=== PATIENT | male | born 1995 | race Caucasian/White ===

== ENCOUNTER 2023-11-19 21:57 | Emergency (ER) | payer OTHER ==
[2023-11-19] MEDS ORDERED: chlordiazePOXIDE 25 MG CAP ONE (22:40)
[2023-11-19] MEDS ORDERED: lisinopriL 10 MG TAB ONE (22:41)
[2023-11-20] MEDS ORDERED: LORazepam 1 MG TAB ONE (00:05)
== END 2023-11-20 | disposition home or self-care (01) ==
LOC: EC 21:57
CPT/HCPCS: 99284

== ENCOUNTER 2024-02-02 12:55 | Observation (INO) | payer OTHER ==
[2024-02-02 13:12] VITALS: TEMP 97.5
[2024-02-02] MEDS: ONDANSETRON 4 MG/2 ML VIAL IVP STA (13:31)
[2024-02-02] MEDS: SODIUM CHLORIDE 0.9% 2,000 ML IV ONE (13:31)
[2024-02-02] MEDS: LORazepam 2 MG/ML INJ IV STA (13:32)
[2024-02-02 13:34] LABS: Basophils % (A) 0 %; Eosinophils # (A) 0.1 k/uL (0-0.7); Eosinophils % (A) 1 %; HCT 52.8 % (39.0-53.0); HGB 17.4 gm/dL (13.0-17.5); Lymphocytes # (A) 0.7 k/uL (1.0-4.8); Lymphocytes % (A) 7 %; MCH 33.3 pg (25.0-35.0); MCV 101.1 fL (80.0-100.0); Mean Platelet Volume 8.6; Monocytes # (A) 0.7 k/uL (0-1.0); Monocytes % (A) 7 %; Neutrophils # (A) 8.1 k/uL (1.3-7.7); Neutrophils % (A) 84 %; Platelet Count 221 k/uL (150-450); RBC 5.23 m/uL (4.30-5.90); RDW 13.1 % (11.5-15.5); WBC 9.7 k/uL (3.8-10.6)
--- NOTE | 2024-02-02 13:45 | ED ---
General Adult HPI - General Chief complaint: Alcohol Stated complaint: ETOH, Withdrawals Time Seen by Provider: 02/02/24 13:00 Source: patient, RN notes reviewed, old records reviewed Mode of arrival: ambulatory Limitations: no limitations - History of Present Illness Initial comments: This is a 28-year-old male who presents to the emergency department stating he stopped drinking 11:00 last night and he is an alcoholic and he feels like he is going through withdrawal. Patient states he cannot stop vomiting and he has the shakes really bad. Patient states he tried rehab once before and it did not work. Patient states he is not suicidal homicidal but he is very ashamed for drinking so much. Patient would like to get sober at some time. Patient denies any chest pain difficulty breathing shortness of breath. Patient [place] any fever chills or cough. Patient has any abdominal pain. Patient denies any diarrhea. - Related Data Home Medications Medication Instructions Recorded Confirmed FLUoxetine HCL [PROzac] 20 mg PO DAILY 02/02/24 02/02/24 lisinopriL [Zestril] 10 mg PO DAILY 02/02/24 02/02/24 Allergies Allergy/AdvReac Type Severity Reaction Status Date / Time No Known Allergies Allergy Verified 02/02/24 14:58 Review of Systems ROS Statement: Those systems with pertinent positive or pertinent negative responses have been documented in the HPI. ROS Other: All systems not noted in ROS Statement are negative. Past Medical History Past Medical History: No Reported History History of Any Multi-Drug Resistant Organisms: None Reported Past Surgical History: No Surgical Hx Reported Past Psychological History: Depression Smoking Status: Never smoker Past Alcohol Use History: Abuse, Daily, Heavy Past Drug Use History: None Reported General Exam - General Exam Comments Initial Comments: GENERAL: Patient is well-developed and well-nourished. Patient is nontoxic and well- hydrated and is in moderate distress. ENT: Neck is soft and supple. No significant lymphadenopathy is noted. Oropharynx is clear. Moist mucous membranes. Neck has full range of motion without eliciting any pain. EYES: The sclera were anicteric and conjunctiva were pink and moist. Extraocular movements were intact and pupils were equal round and reactive to light. Eyelids were unremarkable. PULMONARY: Unlabored respirations. Good breath sounds bilaterally. No audible rales rhonchi or wheezing was noted. CARDIOVASCULAR: There is a regular rate and rhythm without any murmurs gallops or rubs. ABDOMEN: Soft and nontender with normal bowel sounds. SKIN: Skin is clear with no lesions or rashes and otherwise unremarkable. NEUROLOGIC: Patient is alert and oriented x3. Cranial nerves II through XII are grossly intact. Motor and sensory are also intact. Normal speech, volume and content. Symmetrical smile. MUSCULOSKELETAL: Normal extremities with adequate strength and full range of motion. No lower extremity swelling or edema. No calf tenderness. LYMPHATICS: No significant lymphadenopathy is noted PSYCHIATRIC: Normal psychiatric evaluation. Limitations: no limitations Course Vital Signs 02/02/24 02/02/24 13:00 15:43 Temperature 97.5 F L Pulse Rate 65 98 Respiratory 26 H 18 Rate Blood Pressure 181/97 166/92 O2 Sat by Pulse 98 97 Oximetry Medical Decision Making - Medical Decision Making EKG is interpreted by myself. EKG shows a sinus tachycardia at 126 bpm. MS interval is 152 QRS 109 QT interval 335 QTc of 410. Patient's EKG shows no ST segment elevation or depression. Was pt. sent in by a medical professional or institution (, PA, CARGO AND CONTAINER INSPECTOR, urgent care, hospital, or skilled nursing...) When possible be specific @ -No Did you speak to anyone other than the patient for history (EMS, parent, family, police, friend...)? What history was obtained from this source @ -No Did you review nursing and triage notes (agree or disagree)? Why? @ -I reviewed and agree with nursing and triage notes Were old charts reviewed (outside hosp., previous admission, EMS record, old EK G, old radiological studies, urgent care reports/EKG's, skilled nursing records)? Report findings @ -No old charts were reviewed Differential Diagnosis? @ -Alcohol intoxication, alcohol withdrawal, drug withdrawal, this is not an all-inclusive list EKG interpreted by me (3pts min.). @ -As above X-rays interpreted by me (1pt min.). @ -None done CT interpreted by me (1pt min.). @ -None done U/S interpreted by me (1pt. min.). @ -None done What testing was considered but not performed or refused? (CT, X-rays, U/S, labs)? Why? @ -None What meds were considered but not given or refused? Why? @ -None Did you discuss the management of the patient with other professionals (professionals i.e. , PA, CARGO AND CONTAINER INSPECTOR, lab, RT, psych nurse, director of social media marketing, visual inspector, teacher, security police officer, family caseworker)? Give summary @ -I spoke with sound physicians he agreed to admit the patient Was smoking cessation discussed for >3mins.? @ -No Was critical care preformed (if so, how long)? @ -No Were there social determinants of health that impacted care today? How? (Homelessness, low income, unemployed, alcoholism, drug addiction, transportation, low edu. Level, literacy, decrease access to med. care, fpc, rehab)? @ -No Was there de-escalation of care discussed even if they declined (Discuss DNR or withdrawal of care, Hospice)? DNR status @ -No What co-morbidities impacted this encounter? (DM, HTN, Smoking, COPD, CAD, Cancer, CVA, ARF, Chemo, Hep., AIDS, mental health diagnosis, sleep apnea, morbid obesity)? @ -None Was patient admitted / discharged? Hospital course, mention meds given and route, prescriptions, significant lab abnormalities, going to OR and other pertinent info. @ -Patient received 2 L of normal saline. Patient received magnesium. Patient received Zofran and Ativan. Patient continued to have the shakes I spoke with [facility] physicians agreed admit the patient admit the patient recommending orders Undiagnosed new problem with uncertain prognosis? @ -No Drug Therapy requiring intensive monitoring for toxicity (Heparin, Nitro, Insulin, Cardizem)? @ -No Were any procedures done? @ -No Diagnosis/symptom? @ -Alcohol withdrawal Acute, or Chronic, or Acute on Chronic? @ -Acute Uncomplicated (without systemic symptoms) or Complicated (systemic symptoms)? @ -Complicated Side effects of treatment? @ -No Exacerbation, Progression, or Severe Exacerbation? @ -No Poses a threat to life or bodily function? How? (Chest pain, [place], [place], pneumonia, PE, COPD, DKA, ARF, appy, cholecystitis, CVA, Diverticulitis, Homicidal, Suicidal, threat to staff... and all critical care pts) @ -Yes patient could continue withdrawal and have seizures. - Lab Data Result diagrams: 02/02/24 13:25 02/02/24 15:37 Lab Results 02/02/24 02/02/24 02/02/24 Range/Units 13:25 13:25 14:28 WBC 9.7 (3.8-10.6) k/uL RBC 5.23 (4.30-5.90) m/uL Hgb 17.4 (13.0-17.5) gm/dL Hct 52.8 (39.0-53.0) % MCV 101.1 H (80.0-100.0) fL MCH 33.3 (25.0-35.0) pg MCHC 33.0 (31.0-37.0) g/dL RDW 13.1 (11.5-15.5) % Plt Count 221 (150-450) k/uL MPV 8.6 Neutrophils % 84 % Lymphocytes % 7 % Monocytes % 7 % Eosinophils % 1 % Basophils % 0 % Neutrophils # 8.1 H (1.3-7.7) k/uL Lymphocytes # 0.7 L (1.0-4.8) k/uL Monocytes # 0.7 (0-1.0) k/uL Eosinophils # 0.1 (0-0.7) k/uL Basophils # 0.0 (0-0.2) k/uL Sodium (137-145) mmol/L Potassium (3.5-5.1) mmol/L Chloride (98-107) mmol/L Carbon Dioxide (22-30) mmol/L Anion Gap mmol/L BUN (9-20) mg/dL Creatinine (0.66-1.25) mg/dL Est GFR (CKD-EPI)AfAm (>60 ml/min/1.73 sqM) Est GFR (CKD-EPI)NonAf (>60 ml/min/1.73 sqM) Glucose (74-99) mg/dL Lactic Ac Sepsis Rflx Y Plasma Lactic Acid Naresh 3.9 H* (0.7-2.0) mmol/L Calcium (8.4-10.2) mg/dL Magnesium (1.6-2.3) mg/dL Total Bilirubin (0.2-1.3) mg/dL AST (17-59) U/L ALT (4-49) U/L Alkaline Phosphatase (38-126) U/L Total Protein (6.3-8.2) g/dL Albumin (3.5-5.0) g/dL Lipase (23-300) U/L Serum Alcohol mg/dL 02/02/24 Range/Units 15:37 WBC (3.8-10.6) k/uL RBC (4.30-5.90) m/uL Hgb (13.0-17.5) gm/dL Hct (39.0-53.0) % MCV (80.0-100.0) fL MCH (25.0-35.0) pg MCHC (31.0-37.0) g/dL RDW (11.5-15.5) % Plt Count (150-450) k/uL MPV Neutrophils % % Lymphocytes % % Monocytes % % Eosinophils % % Basophils % % Neutrophils # (1.3-7.7) k/uL Lymphocytes # (1.0-4.8) k/uL Monocytes # (0-1.0) k/uL Eosinophils # (0-0.7) k/uL Basophils # (0-0.2) k/uL Sodium 138 (137-145) mmol/L Potassium 3.6 (3.5-5.1) mmol/L Chloride 102 (98-107) mmol/L Carbon Dioxide 33 H (22-30) mmol/L Anion Gap 3 mmol/L BUN 13 (9-20) mg/dL Creatinine 0.61 L (0.66-1.25) mg/dL Est GFR (CKD-EPI)AfAm >90 (>60 ml/min/1.73 sqM) Est GFR (CKD-EPI)NonAf >90 (>60 ml/min/1.73 sqM) Glucose 102 H (74-99) mg/dL Lactic Ac Sepsis Rflx Plasma Lactic Acid Naresh (0.7-2.0) mmol/L Calcium 8.7 (8.4-10.2) mg/dL Magnesium 1.1 L (1.6-2.3) mg/dL Total Bilirubin 2.1 H (0.2-1.3) mg/dL AST 253 H (17-59) U/L ALT 131 H (4-49) U/L Alkaline Phosphatase 152 H (38-126) U/L Total Protein 6.4 (6.3-8.2) g/dL Albumin 3.6 (3.5-5.0) g/dL Lipase 161 (23-300) U/L Serum Alcohol <10 mg/dL Disposition Clinical Impression: Alcohol withdrawal syndrome, Hypomagnesemia Disposition: ADMITTED IP TO THIS HOSP Referrals: None,Stated [Primary Care Provider] - 1-2 days Time of Disposition: 17:14
[2024-02-02 15:59] LABS: ALT 131 U/L (4-49); AST 253 U/L (17-59); African American GFR (CKD) >90 (>60 ml/min/1.73 sqM); Albumin 3.6 g/dL (3.5-5.0); Alcohol <10 mg/dL; Alkaline Phosphatase 152 U/L (38-126); Anion Gap 3 mmol/L; Blood Urea Nitrogen 13 mg/dL (9-20); Calcium 8.7 mg/dL (8.4-10.2); Carbon Dioxide 33 mmol/L (22-30); Chloride 102 mmol/L (98-107); Glucose 102 mg/dL (74-99); Lipase 161 U/L (23-300); Magnesium 1.1 mg/dL (1.6-2.3); Non-African American GFR(CKD) >90 (>60 ml/min/1.73 sqM); Potassium 3.6 mmol/L (3.5-5.1); Sodium 138 mmol/L (137-145); Total Bilirubin 2.1 mg/dL (0.2-1.3); Total Protein 6.4 g/dL (6.3-8.2)
[2024-02-02] MEDS: MAGNESIUM SULFATE-D5W PMX 1 GM in DEXTROSE/WATER 1 100ML.BAG IVPB SCH ×2 (16:22→18:50)
[2024-02-02] MEDS ORDERED: LORazepam 2 MG/ML INJ IV PRN (17:15)
[2024-02-02] MEDS: SODIUM CHLORIDE 0.9% 1,000 ML IV ONE (17:45)
[2024-02-02] MEDS: THIAMINE 100 MG/ML 2 ML VIAL IM STA (17:49)
--- NOTE | 2024-02-02 17:54 | P.HPIM ---
History of Present Illness H&P Date: 02/02/24 Patient is a is a 28-year-old male with PMH of hypertension, alcohol dependence and nicotine dependence brought to ER by his niece with a severe alcohol withdrawal symptoms such as tremors associated with nausea and vomiting. Patient states that he had a last drink around 10 PM yesterday at his house. Patient has been drinking alcohol since age of 16 and has started drinking more lately. Currently, he drinks about 2-3 fifth a day. He has been hospitalized in the past for withdrawal symptoms. Denies any auditory and/or visual hallucination. Denies seizure disorder. Denies any fall or head injury. Denies any shortness of breath, chest pain, abdominal pain, numbness or tingling or weakness in upper or lower extremity. Patient continue to feel mildly nauseated but states that he is feeling much better at the time of interview after receiving ativan. Laboratory evaluation in the ER shows WBC 9.7, hemoglobin 17.4, MCV 101.1, platelet count 221, sodium 138, potassium 3.6, bicarb 33, chloride 102, BUN 13, creatinine 0.61, glucose 102, Magnesium 1.1, total bili 2.1, AST 253, ALT 131, ALP 152, and lactic acid 3.9. EKG in the ER shows sinus tachycardia with nonspecific ST-T wave changes. Review of systems: Pertinent positives and negatives as discussed in HPI, a complete review of systems was performed and all other systems are negative. Social history: Tobacco: 1 pack/day x 15 years Alcohol: 2-3 fifth a day Recreational drugs: Smokes marijuana Physical examination: Vital signs reviewed General: non toxic, no distress, appears at stated age, normal weight Derm: no unusual rashes/lesions, warm Head: atraumatic, normocephalic, symmetric Eyes: EOMI, no lid lag, anicteric sclera, pupils equal round reactive to light ENT: Nose and ears atraumatic Neck: No cervical lymphadenopathy, trachea midline, supple Mouth: no lip lesion, mucus membranes moist Cardiovascular: S1S2 reg, no murmur, positive dorsalis pedis pulse bilateral, no edema Lungs: CTA bilateral, no rhonchi, no rales, no accessory muscle use Abdominal: soft, nontender to palpation, no guarding Ext: muscle strength 5 out of 5 in all 4 extremities grossly, no gross muscle atrophy, no contractures, tremors noted bilaterally Psych: Alert, oriented, appropriate affect Assessment/Plan: Patient is a is a 28-year-old male with PMH of hypertension, alcohol dependence and nicotine dependence presented to ER by his niece with a severe alcohol withdrawal symptoms such as tremors with nausea and vomiting. #Alcohol withdrawal #Alcohol Abuse Disorder, severe, with dependence #Transaminitis secondary to chronic alcohol dependence Management per [facility] protocol Ativan PRN Librium 25 TID Continue with IV 75 cc/h normal saline Thiamine 100 mg IM once stat Thiamine 100mg PO daily, Folic acid 1mg daily, Multivitamin daily Fall precautions, seizure precautions ETOH cessation counseling Continue monitor liver function enzymes, INR daily #Hypomagnesemia Mag 1.1 Order magnesium sulfate 4 g Continue monitor magnesium level #Contraction Alkalosis #Lactic acid secondary to dehydration in the setting of alcoholism Lactic acid 3.9 Continue with IV normal saline 75 cc/h Monitor BMP #Chronic conditions Anxiety/depression, hypertension Home medication reconciled DVT prophylaxis: None F: IV normal saline 75 cc/h E: Replete as needed N: Regular diet E: Ambulatory The patient is admitted with an anticipated less than 2 midnight stay for evaluation of alcohol withdrawal CODE STATUS: Full Discussed with: Patient Anticipated discharge place: Pending clinical course I saw and evaluated the patient during the oliver and critical portions of this encounter, and discussed the case in detail with the resident author of this note, I agree with the Assessment and Plan, and my changes, if any, are highlighted in blue. Past Medical History Past Medical History: No Reported History History of Any Multi-Drug Resistant Organisms: None Reported Past Surgical History: No Surgical Hx Reported Past Psychological History: Depression Smoking Status: Never smoker Past Alcohol Use History: Abuse, Daily, Heavy Past Drug Use History: None Reported Medications and Allergies Home Medications Medication Instructions Recorded Confirmed Type FLUoxetine HCL [PROzac] 20 mg PO DAILY 02/02/24 02/02/24 History lisinopriL [Zestril] 10 mg PO DAILY 02/02/24 02/02/24 History Allergies Allergy/AdvReac Type Severity Reaction Status Date / Time No Known Allergies Allergy Verified 02/02/24 14:58 Physical Exam Osteopathic Statement: *. No significant issues noted on an osteopathic structural exam other than those noted in the History and Physical/Consult. Vitals: Vital Signs Temp Pulse Resp BP Pulse Ox 02/02/24 15:43 98 18 166/92 97 02/02/24 13:00 97.5 F L 65 26 H 181/97 98 Intake and Output 02/02/24 02/02/24 02/02/24 06:59 14:59 22:59 Other: Weight 95.254 kg Results CBC & Chem 7: 02/02/24 13:25 02/02/24 15:37 Labs: Abnormal Lab Results - Last 24 Hours (Table) 02/02/24 02/02/24 02/02/24 Range/Units 13:25 13:25 15:37 MCV 101.1 H (80.0-100.0) fL Neutrophils # 8.1 H (1.3-7.7) k/uL Lymphocytes # 0.7 L (1.0-4.8) k/uL Carbon Dioxide 33 H (22-30) mmol/L Creatinine 0.61 L (0.66-1.25) mg/dL Glucose 102 H (74-99) mg/dL Plasma Lactic Acid Naresh 3.9 H* (0.7-2.0) mmol/L Magnesium 1.1 L (1.6-2.3) mg/dL Total Bilirubin 2.1 H (0.2-1.3) mg/dL AST 253 H (17-59) U/L ALT 131 H (4-49) U/L Alkaline Phosphatase 152 H (38-126) U/L
[2024-02-02] MEDS: LORazepam 1 MG TAB PO PRN (17:59)
[2024-02-02] MEDS: chlordiazePOXIDE 25 MG CAP PO SCH (18:50)
[2024-02-02 19:38] LABS: Prothrombin Time 10.7 sec (10.0-12.5)
[2024-02-02] MEDS: LORazepam 0.5 MG TAB PO PRN (21:44)
[2024-02-03] MEDS: LORazepam 1 MG TAB PO PRN ×2 (00:11→04:50)
[2024-02-03] MEDS: FLUoxetine HCL 20 MG CAP PO SCH (08:33)
[2024-02-03] MEDS: lisinopriL 10 MG TAB PO SCH (08:33)
--- NOTE | 2024-02-03 09:24 | US ---
EXAMINATION TYPE: US abdomen limited DATE OF EXAM: 02/03/2024 COMPARISON: NONE CLINICAL INDICATION: Male, 28 years old with history of RUQ; Came in for alcohol TECHNIQUE: Grayscale and color Doppler imaging of the right upper quadrant was performed. FINDINGS: EXAM MEASUREMENTS: Liver Length: 17.9 cm Gallbladder Wall: 0.19 cm CBD: 0.37 cm Right Kidney: 11.3 x 5.6 x 5.6 cm Pancreas: parts seen appear wnl Liver: heterogeneous, echogenic, and borderline enlarged. No focal lesion seen. Gallbladder: No abnormal distention, wall thickening, pericholecystic fluid, or shadowing calculi. Evidence for sonographic Johnson's sign: No CBD: wnl Right Kidney: No hydronephrosis. IMPRESSION: 1. Borderline hepatomegaly at 17.9 cm with at least moderate hepatic steatosis. Appropriate clinical management is advised. 2. No gallstones or biliary ductal dilatation. [facility], , 02/03/2024 9:22 AM
[2024-02-03 10:47] LABS: Basophils # (A) 0.03 X 10*3/uL (0.00-0.10); Basophils % (A) 0.6 %; Eosinophils # (A) 0.06 X 10*3/uL (0.04-0.35); Eosinophils % (A) 1.1 %; HCT 47.2 % (39.6-50.0); HGB 15.8 g/dL (13.0-17.0); Lymphocytes % (A) 12.9 %; MCH 33.1 pg (27.0-32.0); MCHC 33.5 g/dL (32.0-37.0); MCV 98.7 FL (80.0-97.0); Mean Platelet Volume 11.5 FL (9.5-12.2); Monocytes # (A) 0.41 X 10*3/uL (0.20-1.00); Monocytes % (A) 7.6 %; NRBC Per 100 WBC 0 X 10*3/uL (0.00-0.01); Neutrophils # (A) 4.19 X 10*3/uL (1.80-7.70); Neutrophils % (A) 77.2 %; Platelet Count 132 X 10*3/uL (140-440); RBC 4.78 X 10*6/uL (4.40-5.60); RDW 12.5 % (11.5-14.5); WBC 5.42 X 10*3/uL (4.50-10.00)
[2024-02-03 10:56] LABS: ALT 107 U/L (10-49); AST 209 U/L (14-35); Albumin 3.6 g/dL (3.8-4.9); Albumin/Globulin Ratio 1.57 Ratio (1.60-3.17); Alkaline Phosphatase 161 U/L (41-126); BUN/Creat Ratio 14.29 Ratio (12.00-20.00); Bilirubin, Conjugated 0.94 mg/dL (0.20-0.40); Bilirubin,Unconjugated 0.96 mg/dL (0.20-1.00); Calcium 8.6 mg/dL (8.7-10.3); Carbon Dioxide 25.9 mmol/L (21.6-31.8); Chloride 100 mmol/L (96-109); Globulin 2.3 g/dL (1.6-3.3); Glucose 94 mg/dL (70-110); Magnesium 2.2 mg/dL (1.5-2.4); Potassium 3.8 mmol/L (3.5-5.5); Sodium 136 mmol/L (135-145); Total Bilirubin 1.9 mg/dL (0.3-1.2); Total Protein 5.9 g/dL (6.2-8.2)
[2024-02-03] MEDS: FOLIC ACID 1 MG TAB PO SCH (10:56)
[2024-02-03] MEDS: THIAMINE 100 MG TAB PO SCH (10:57)
[2024-02-03 13:55] VITALS: BP 162/102; PULSE 97; RESP 18
[2024-02-03 14:06] LABS: INR 0.97 sec (0.93-1.11); Prothrombin Time 10.5 sec (9.9-11.9)
[2024-02-03] MEDS ORDERED: NICOTINE 21MG/24HR PATCH TRANSDERM SCH (14:15)
--- NOTE | 2024-02-03 15:12 | P.PN ---
Subjective Progress Note Date: 02/03/24 Hospital course: Patient is a is a 28-year-old male with PMH of hypertension, alcohol dependence and nicotine dependence brought to ER by his niece with a severe alcohol withdrawal symptoms such as tremors associated with nausea and vomiting. Patient is admitted for alcohol withdrawal. Laboratory evaluation in the ER shows WBC 9.7, hemoglobin 17.4, MCV 101.1, platelet count 221, sodium 138, potassium 3.6, bicarb 33, chloride 102, BUN 13, creatinine 0.61, glucose 102, Magnesium 1.1, total bili 2.1, AST 253, ALT 131, ALP 152, and lactic acid 3.9. EKG in the ER shows sinus tachycardia with nonspecific ST-T wave changes. Subjective: Patient seen and examined at the bedside. Patient endorses mild diffuse abdominal pain, 4/10, nonradiating no exacerbating or alleviating factors associated mild nausea but no vomiting. All Systems reviewed and pertinent positives and negatives noted in HPI, all other symptoms are negative Objective: Vital signs reviewed. Physical examination: Vital signs reviewed General: non toxic, no distress, appears at stated age, normal weight Derm: no unusual rashes/lesions, warm Head: atraumatic, normocephalic, symmetric Eyes: EOMI, no lid lag, anicteric sclera, pupils equal round reactive to light ENT: Nose and ears atraumatic Neck: No cervical lymphadenopathy, trachea midline, supple Mouth: no lip lesion, mucus membranes moist Cardiovascular: S1S2 reg, no murmur, positive dorsalis pedis pulse bilateral, no edema Lungs: CTA bilateral, no rhonchi, no rales, no accessory muscle use Abdominal: soft, mild diffuse abdominal tenderness upon palpation. Positive bowel sounds. No rebound tenderness. Hepatomegaly. Ext: muscle strength 5 out of 5 in all 4 extremities grossly, no gross muscle atrophy, no contractures, tremors noted bilaterally Psych: Alert, oriented, appropriate affect Data reviewed today: Labs: WBC 5.42, hemoglobin 15.8, MCV 98.7, platelet count 132, PT 10.5, INR 0.95, sodium 136, potassium 3.8, chloride 100, bicarb 26 5.9, BUN 10.0, creatinine 0.7, calcium 8.6, magnesium 2.2, total bili 1.9, AST 209, ALT 107, ALP 161 Images: Abdominal ultrasound shows hepatomegaly with moderate level hepatic steatosis. Assessment and Plan: Patient is a is a 28-year-old male with PMH of hypertension, alcohol dependence and nicotine dependence brought to ER by his niece with a severe alcohol withdrawal symptoms such as tremors associated with nausea and vomiting. Patient is admitted for alcohol withdrawal. #Alcohol withdrawal #Alcohol Abuse Disorder, severe, with dependence #Transaminitis secondary to chronic alcohol dependence Management per [facility] protocol Ativan PRN Librium 25 TID is discontinued Continue with IV 75 cc/h normal saline, discontinued Thiamine 100mg PO daily, Folic acid 1mg daily Fall precautions, seizure precautions ETOH cessation counseling Continue monitor liver function enzymes PT 10.5, total bili 1.9 Maddrey's discriminant function calculated, unlikely to be alcoholic hepatitis; no indication for glucocorticoid therapy Order hepatitis viral panel #Hypomagnesemia, resolved Mag 2.2 #Contraction Alkalosis, resolved #Lactic acid secondary to dehydration in the setting of alcoholism, resolved #Chronic conditions Anxiety/depression, hypertension Home medication reconciled DVT prophylaxis: None F: P.o. E: Replete as needed N: Regular diet E: Ambulatory CODE STATUS: Full Discussed with: Patient Anticipated discharge place: Pending clinical course I have seen and evaluated the patient today. Discussed with the resident and agree with the residents finding and plan as documented in the resident's note. Changes highlighted in blue font. Objective - Vital Signs Vital signs: Vital Signs Temp 97.5 F L 02/02/24 13:00 Pulse 97 02/03/24 13:55 Resp 18 02/03/24 13:55 BP 162/102 02/03/24 13:55 Pulse Ox 96 02/03/24 13:55 FiO2 Intake & Output 02/02/24 02/03/24 02/03/24 18:59 06:59 18:59 Weight 95.254 kg - Labs CBC & Chem 7: 02/03/24 07:02 02/03/24 07:02 Labs: Abnormal Lab Results - Last 24 Hours (Table) 02/02/24 02/03/24 02/03/24 Range/Units 15:37 07:02 07:02 MCV 98.7 H (80.0-97.0) FL MCH 33.1 H (27.0-32.0) pg Plt Count 132 L (140-440) X 10*3/uL Lymphocytes # 0.70 L (0.90-5.00) X 10*3/uL Carbon Dioxide 33 H (22-30) mmol/L Creatinine 0.61 L (0.66-1.25) mg/dL Glucose 102 H (74-99) mg/dL Calcium 8.6 L (8.7-10.3) mg/dL Magnesium 1.1 L (1.6-2.3) mg/dL Total Bilirubin 2.1 H 1.9 H (0.2-1.3) mg/dL Conjugated Bilirubin 0.94 H (0.20-0.40) mg/dL AST 253 H 209 H (17-59) U/L ALT 131 H 107 H (4-49) U/L Alkaline Phosphatase 152 H 161 H (38-126) U/L Total Protein 5.9 L (6.2-8.2) g/dL Albumin 3.6 L (3.8-4.9) g/dL Albumin/Globulin Ratio 1.57 L (1.60-3.17) Ratio
--- NOTE | 2024-02-03 15:51 | P.DS ---
Providers Date of admission: 02/02/24 17:20 Expected date of discharge: 02/03/24 Attending physician: Jh Viramontes MD Primary care physician: Stated None Hospital Course: Patient left AMA today. Plan - Discharge Summary New Discharge Prescriptions: No Action lisinopriL [Zestril] 10 mg PO DAILY FLUoxetine HCL [PROzac] 20 mg PO DAILY Discharge Medication List FLUoxetine HCL [PROzac] 20 mg PO DAILY 02/02/24 [History] lisinopriL [Zestril] 10 mg PO DAILY 02/02/24 [History] Follow up Appointment(s)/Referral(s): None,Stated [Primary Care Provider] - 1-2 days Discharge Disposition: LEFT AGAINST MEDICAL ADVICE
[2024-02-03 22:15] LABS: Hepatitis A Antibody IgM Nonreactive (Nonreactive); Hepatitis B Core IgM Nonreactive (Nonreactive); Hepatitis B Surface Antigen Nonreactive (Nonreactive); Hepatitis C IgG Antibody Nonreactive (Nonreactive)
== END 2024-02-03 14:45 | disposition left against medical advice (07) ==
LOC: EC 12:55 → 4SSUR 17:20
PROVIDERS: ADMIT Internal Medicine; ATTEND Internal Medicine
DX: F10.239 Alcohol dependence with withdrawal, unspecified (principal); E83.42 Hypomagnesemia; E87.3 Alkalosis; E86.0 Dehydration; Z53.29 Procedure and treatment not carried out because of patient's decision for other reasons; R10.84 Generalized abdominal pain; R74.01 Elevation of levels of liver transaminase levels; I10 Essential (primary) hypertension; F41.9 Anxiety disorder, unspecified; F32.A Depression, unspecified; Z79.899 Other long term (current) drug therapy; Z87.891 Personal history of nicotine dependence
CPT/HCPCS: 96361 ×2; 96365; 96366; 96372; 96375; 99285; 36415; 93005; 80053; 80048; 80076; 80074; 83605; 83690; 83735 ×2; 85025 ×2; 85610 ×2; 76705; G0378 ×2; G0480; J2060; J3411; J2405; J3475; 80320

== ENCOUNTER 2024-07-09 18:29 | Inpatient (IN) | payer OTHER ==
--- NOTE | 2024-07-09 18:39 | ED ---
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) Previous Visits for Alcohol Intoxication?: Yes Recent Trauma: Yes Associated Symptoms: nausea, vomiting Treatments Prior to Arrival: none Chronic Alcohol Use: Yes - Related Data Home Medications Medication Instructions Recorded Confirmed FLUoxetine HCL [PROzac] 20 mg PO DAILY 02/02/24 02/02/24 lisinopriL [Zestril] 10 mg PO DAILY 02/02/24 02/02/24 Allergies Allergy/AdvReac Type Severity Reaction Status Date / Time No Known Allergies Allergy Verified 07/09/24 18:35 Review of Systems ROS Statement: Those systems with pertinent positive or pertinent negative responses have been documented in the HPI. ROS Other: All systems not noted in ROS Statement are negative. Past Medical History Past Medical History: No Reported History History of Any Multi-Drug Resistant Organisms: None Reported Past Surgical History: No Surgical Hx Reported Past Psychological History: Depression Smoking Status: Never smoker Past Alcohol Use History: Abuse, Daily, Heavy Past Drug Use History: None Reported General Exam Limitations: altered mental status General appearance: appears intoxicated, lethargic Head exam: Present: atraumatic, normocephalic, normal inspection Eye exam: Present: normal appearance, PERRL, EOMI. Absent: scleral icterus, conjunctival injection, periorbital swelling ENT exam: Present: normal exam, mucous membranes moist Neck exam: Present: normal inspection. Absent: tenderness, meningismus, lymphadenopathy Respiratory exam: Present: normal lung sounds bilaterally. Absent: respiratory distress, wheezes, rales, rhonchi, stridor Cardiovascular Exam: Present: regular rate, normal rhythm, normal heart sounds. Absent: systolic murmur, diastolic murmur, rubs, gallop, clicks GI/Abdominal exam: Present: soft, normal bowel sounds. Absent: distended, tenderness, guarding, rebound, rigid Extremities exam: Present: normal inspection, full ROM, normal capillary refill. Absent: tenderness, pedal edema, joint swelling, calf tenderness Back exam: Present: normal inspection Neurological exam: Present: alert, oriented X3, CN II-XII intact Psychiatric exam: Present: normal affect, normal mood Skin exam: Present: warm, dry, intact, normal color. Absent: rash Course Vital Signs 07/09/24 18:33 Temperature 98 F Pulse Rate 92 Respiratory 18 Rate Blood Pressure 167/128 O2 Sat by Pulse 92 L Oximetry - Reevaluation(s) Reevaluation #1: 07/09/24 20:22 Medical records reviewed Reevaluation #2: 07/09/24 20:22 Patient symptoms unchanged Reevaluation #3: 07/09/24 20:22 Patient informed of results questions answered Reevaluation #4: Was pt. sent in by a medical professional or institution ([facility], [facility], urgent care, hospital, or senior care...) When possible be specific @ -no Did you speak to anyone other than the patient for history (EMS, parent, family, police, friend...)? What history was obtained from this source @ -no Did you review nursing and triage notes (agree or disagree)? Why? @ -agree Are old charts reviewed (outside hosp., previous admission, EMS record, old EKG, old radiological studies, urgent care reports/EKG's, senior care records)? Report findings @ -yes Differential Diagnosis (chest pain, altered mental status, abdominal pain women, abdominal pain men, vaginal bleeding, weakness, fever, dyspnea, syncope, headache, dizziness, GI bleed, back pain, seizure, CVA, palpatations, mental health, musculoskeletal)? @ -prior EKG interpreted by me (3pts min.). @ -yes X-rays interpreted by me (1pt min.). @ -yes negative for acute disease CT interpreted by me (1pt min.). @ -no U/S interpreted by me (1pt. min.). @ -no What testing was considered but not performed or refused? (CT, X-rays, U/S, labs)? Why? @ -none What meds were considered but not given or refused? Why? @ -none Did you discuss the management of the patient with other professionals (professionals i.e. Dr., PA, SPOKE MAKER, lab, RT, psych nurse, socially responsible investment adviser, greenhouse manager, teacher, contracting officer, case maker)? Give summary @ -no Was smoking cessation discussed for >3mins.? @ -no Was critical care preformed (if so, how long)? @ -no Were there social determinants of health that impacted care today? How? (Homelessness, low income, unemployed, alcoholism, drug addiction, transportation, low edu. Level, literacy, decrease access to med. care, nursing home, rehab)? @ -none Was there de-escalation of care discussed even if they declined (Discuss DNR or withdrawal of care, Hospice)? DNR status @ -no What co-morbidities impacted this encounter? (DM, HTN, Smoking, COPD, CAD, Cancer, CVA, ARF, Chemo, Hep., AIDS, mental health diagnosis, sleep apnea, morbid obesity)? @ -none Was patient admitted / discharged? Hospital course, mention meds given and route, prescriptions, significant lab abnormalities, going to OR and other pertinent info. @ - Undiagnosed new problem with uncertain prognosis? @ -no Drug Therapy requiring intensive monitoring for toxicity (Heparin, Nitro, Insulin, Cardizem)? @ -no Were any procedures done? @ -no Diagnosis/symptom? @ - Acute, or Chronic, or Acute on Chronic? @ -Acute Uncomplicated (without systemic symptoms) or Complicated (systemic symptoms)? @ -Complicated Side effects of treatment? @ -no Exacerbation, Progression, or Severe Exacerbation? @ -exacerbation Poses a threat to life or bodily function? How? (Chest pain, USA, CT, pneumonia, PE, COPD, DKA, ARF, appy, cholecystitis, CVA, Diverticulitis, Homicidal, Suic idal, threat to staff... and all critical care pts) @ -yes Reevaluation #5: Differential Altered Mental Status: Hypoglycemia, DKA, hypercapnia, ETOH, overdose, CO poisoning, trauma, myxedema coma, HTN encephalopathy, infection, encephalitis, psychosis, intercranial hemorrhage, hepatic encephalopathy, meningitis, CVA, this is not meant to be an all-inclusive list - Consultations Consultation #1: Spoke with KAITLIN matias to admit this patient Medical Decision Making - Medical Decision Making 29 male to the ER will be admitted for psychiatric evaluation as well as possible withdrawal precautions with severe alcoholism - Lab Data Result diagrams: 07/09/24 18:55 07/09/24 18:55 Lab Results 07/09/24 07/09/24 Range/Units 18:55 18:55 WBC 10.2 (3.8-10.6) k/uL RBC 5.85 (4.30-5.90) m/uL Hgb 19.6 H* (13.0-17.5) gm/dL Hct 58.4 H* (39.0-53.0) % MCV 99.8 (80.0-100.0) fL MCH 33.6 (25.0-35.0) pg MCHC 33.6 (31.0-37.0) g/dL RDW 12.7 (11.5-15.5) % Plt Count 224 (150-450) k/uL MPV 8.1 Neutrophils % 67 % Lymphocytes % 26 % Monocytes % 4 % Eosinophils % 0 % Basophils % 1 % Neutrophils # 6.8 (1.3-7.7) k/uL Lymphocytes # 2.7 (1.0-4.8) k/uL Monocytes # 0.4 (0-1.0) k/uL Eosinophils # 0.0 (0-0.7) k/uL Basophils # 0.1 (0-0.2) k/uL Sodium 142 (137-145) mmol/L Potassium 3.9 (3.5-5.1) mmol/L Chloride 101 (98-107) mmol/L Carbon Dioxide 27 (22-30) mmol/L Anion Gap 14 mmol/L BUN 7 L (9-20) mg/dL Creatinine 0.62 L (0.66-1.25) mg/dL Est GFR (CKD-EPI)AfAm >90 (>60 ml/min/1.73 sqM) Est GFR (CKD-EPI)NonAf >90 (>60 ml/min/1.73 sqM) Glucose 157 H (74-99) mg/dL Calcium 9.4 (8.4-10.2) mg/dL Phosphorus 4.0 (2.5-4.5) mg/dL Magnesium 1.9 (1.6-2.3) mg/dL Total Bilirubin 1.0 (0.2-1.3) mg/dL AST 343 H (17-59) U/L ALT 137 H (4-49) U/L Alkaline Phosphatase 217 H (38-126) U/L Total Protein 7.7 (6.3-8.2) g/dL Albumin 4.4 (3.5-5.0) g/dL Lipase 294 (23-300) U/L Serum Alcohol 510 H* mg/dL Disposition Clinical Impression: Alcohol withdrawal syndrome, Alcoholic intoxication Disposition: ADMITTED IP TO THIS HOSP Condition: Fair Is patient prescribed a controlled substance at d/c from ED?: No Referrals: Harvey Murphy [Primary Care Provider] - 1-2 days Time of Disposition: 20:00
[2024-07-09 19:01] LABS: Basophils # (A) 0.1 k/uL (0-0.2); Basophils % (A) 1 %; Eosinophils % (A) 0 %; Lymphocytes # (A) 2.7 k/uL (1.0-4.8); Lymphocytes % (A) 26 %; MCH 33.6 pg (25.0-35.0); MCHC 33.6 g/dL (31.0-37.0); MCV 99.8 fL (80.0-100.0); Mean Platelet Volume 8.1; Monocytes # (A) 0.4 k/uL (0-1.0); Monocytes % (A) 4 %; Neutrophils # (A) 6.8 k/uL (1.3-7.7); Neutrophils % (A) 67 %; Platelet Count 224 k/uL (150-450); RBC 5.85 m/uL (4.30-5.90); RDW 12.7 % (11.5-15.5); WBC 10.2 k/uL (3.8-10.6)
[2024-07-09] MEDS: SODIUM CHLORIDE 0.9% 1,000 ML IV STA (19:06)
[2024-07-09 19:11] LABS: ALT 137 U/L (4-49); AST 343 U/L (17-59); African American GFR (CKD) >90 (>60 ml/min/1.73 sqM); Albumin 4.4 g/dL (3.5-5.0); Alkaline Phosphatase 217 U/L (38-126); Anion Gap 14 mmol/L; Blood Urea Nitrogen 7 mg/dL (9-20); Calcium 9.4 mg/dL (8.4-10.2); Carbon Dioxide 27 mmol/L (22-30); Chloride 101 mmol/L (98-107); Glucose 157 mg/dL (74-99); HCT 58.4 % (39.0-53.0); HGB 19.6 gm/dL (13.0-17.5); Lipase 294 U/L (23-300); Magnesium 1.9 mg/dL (1.6-2.3); Non-African American GFR(CKD) >90 (>60 ml/min/1.73 sqM); Potassium 3.9 mmol/L (3.5-5.1); Sodium 142 mmol/L (137-145); Total Protein 7.7 g/dL (6.3-8.2)
[2024-07-09 19:25] LABS: Alcohol 510 mg/dL
[2024-07-09] MEDS ORDERED: LORazepam 2 MG/ML INJ IV PRN ×2 (20:15)
[2024-07-09] MEDS ORDERED: NALOXONE 0.4 MG/ML 1 ML VIAL IV PRN (20:15)
[2024-07-09] MEDS ORDERED: LORazepam 1 MG TAB PO PRN (20:15)
[2024-07-09] MEDS: NICOTINE 21MG/24HR PATCH TRANSDERM STA (22:30)
--- NOTE | 2024-07-10 01:08 | P.HPIM ---
History of Present Illness H&P Date: 07/09/24 Chief Complaint: Alcohol intoxication 29-year-old male patient, history of depression, hypertension, presents to the ED for evaluation of severe alcohol intoxication; patient unable to provide any history; patient has been dealing with the loss of his mother as of recent as she and has been drinking every day Blood work completed in ED reveals a WBC of 10.2, hemoglobin of 19.6 and platelet count of 224, sodium 142, potassium 3.9, BUNs/creatinine of 7/0.62 and blood glucose of 157, serum alcohol level of 510, AST/ALT elevated at 343/137 Patient has been placed on IV fluids along with thiamine and folic acid and is being admitted for alcohol intoxication/pending withdrawal Review of Systems ROS unobtainable: due to mental status Past Medical History Past Medical History: No Reported History History of Any Multi-Drug Resistant Organisms: None Reported Past Surgical History: No Surgical Hx Reported Past Psychological History: Depression Smoking Status: Never smoker Past Alcohol Use History: Abuse, Daily, Heavy Past Drug Use History: None Reported Medications and Allergies Home Medications Medication Instructions Recorded Confirmed Type FLUoxetine HCL [PROzac] 20 mg PO DAILY 02/02/24 02/02/24 History lisinopriL [Zestril] 10 mg PO DAILY 02/02/24 02/02/24 History Allergies Allergy/AdvReac Type Severity Reaction Status Date / Time No Known Allergies Allergy Verified 07/09/24 18:35 Physical Exam Vitals: Vital Signs Temp Pulse Resp BP Pulse Ox 07/09/24 18:33 98 F 92 18 167/128 92 L Intake and Output 07/09/24 07/09/24 07/09/24 06:59 14:59 22:59 Other: Weight 90.718 kg General appearance: appears intoxicated, lethargic Head exam: Present: atraumatic, normocephalic, normal inspection Eye exam: Present: normal appearance, PERRL, EOMI. Absent: scleral icterus, conjunctival injection, periorbital swelling ENT exam: Present: normal exam, mucous membranes moist Neck exam: Present: normal inspection. Absent: tenderness, meningismus, lymphadenopathy Respiratory exam: Present: normal lung sounds bilaterally. Absent: respiratory distress, wheezes, rales, rhonchi, stridor Cardiovascular Exam: Present: regular rate, normal rhythm, normal heart sounds. Absent: systolic murmur, diastolic murmur, rubs, gallop, clicks GI/Abdominal exam: Present: soft, normal bowel sounds. Absent: distended, tenderness, guarding, rebound, rigid Extremities exam: Present: normal inspection, full ROM, normal capillary refill. Absent: tenderness, pedal edema, joint swelling, calf tenderness Back exam: Present: normal inspection Neurological exam: Present: alert, oriented X3, CN II-XII intact Psychiatric exam: Present: normal affect, normal mood Skin exam: Present: warm, dry, intact, normal color. Absent: rash Results CBC & Chem 7: 07/09/24 18:55 07/09/24 18:55 Labs: Abnormal Lab Results - Last 24 Hours (Table) 07/09/24 07/09/24 Range/Units 18:55 18:55 Hgb 19.6 H* (13.0-17.5) gm/dL Hct 58.4 H* (39.0-53.0) % BUN 7 L (9-20) mg/dL Creatinine 0.62 L (0.66-1.25) mg/dL Glucose 157 H (74-99) mg/dL AST 343 H (17-59) U/L ALT 137 H (4-49) U/L Alkaline Phosphatase 217 H (38-126) U/L Serum Alcohol 510 H* mg/dL Assessment and Plan Assessment: 1. Alcohol abuse/intoxication; pending withdrawal; blood alcohol level is 510 -According to patient's chart he has been drinking heavily since his mother passed -Patient has been placed on IV normal saline; thiamine 100 mg daily; folic acid 1 mg daily -[facility] protocol with Ativan 2. Erythrocytosis/dehydration; continue with IV fluids; hemoglobin is elevated at 19.6; likely related to dehydration -We will monitor CBC 3. Transaminitis; AST/ALT markedly elevated; related to alcohol abuse -Will educate patient; monitor liver enzymes DVT prophylaxis; SCDs CODE STATUS; full code
[2024-07-10] MEDS: ONDANSETRON 4 MG/2 ML VIAL IVP PRN (01:09)
[2024-07-10] MEDS: LORazepam 2 MG/ML INJ IV PRN (01:11)
[2024-07-10] MEDS: FOLIC ACID 1 MG TAB PO SCH (08:40)
[2024-07-10] MEDS: THIAMINE 100 MG TAB PO SCH (08:40)
[2024-07-10] MEDS: MULTIVITAMINS, THERA 1 EACH TAB PO SCH (08:40)
[2024-07-10] MEDS ORDERED: LORazepam 1 MG/0.5 ML VIAL IV PRN (08:50)
[2024-07-10 09:50] LABS: Basophils # (A) 0.04 X 10*3/uL (0.00-0.10); Basophils % (A) 0.5 %; Eosinophils # (A) 0.03 X 10*3/uL (0.04-0.35); Eosinophils % (A) 0.4 %; HCT 51.6 % (39.6-50.0); HGB 17.1 g/dL (13.0-17.0); Lymphocytes % (A) 27.2 %; MCH 33.1 pg (27.0-32.0); MCHC 33.1 g/dL (32.0-37.0); Monocytes % (A) 6.8 %; NRBC Per 100 WBC 0 X 10*3/uL (0.00-0.01); Neutrophils # (A) 4.78 X 10*3/uL (1.80-7.70); Platelet Count 159 X 10*3/uL (140-440); RBC 5.16 X 10*6/uL (4.40-5.60); RDW 12.5 % (11.5-14.5); WBC 7.36 X 10*3/uL (4.50-10.00)
[2024-07-10 10:11] LABS: ALT 105 U/L (10-49); AST 239 U/L (14-35); Albumin 3.6 g/dL (3.8-4.9); Albumin/Globulin Ratio 1.57 Ratio (1.60-3.17); Alkaline Phosphatase 185 U/L (41-126); BUN/Creat Ratio 9.14 Ratio (12.00-20.00); Bilirubin, Conjugated 0.46 mg/dL (0.20-0.40); Bilirubin,Unconjugated 0.34 mg/dL (0.20-1.00); Blood Urea Nitrogen 6.4 mg/dL (9.0-27.0); Calcium 8.3 mg/dL (8.7-10.3); Carbon Dioxide 27.8 mmol/L (21.6-31.8); Chloride 102 mmol/L (96-109); Globulin 2.3 g/dL (1.6-3.3); Glucose 108 mg/dL (70-110); Magnesium 1.4 mg/dL (1.5-2.4); Phosphorus 3.8 mg/dL (2.4-5.1); Potassium 3.5 mmol/L (3.5-5.5); Sodium 146 mmol/L (135-145); Total Bilirubin 0.8 mg/dL (0.3-1.2); Total Protein 5.9 g/dL (6.2-8.2)
[2024-07-10] MEDS: LORazepam 1 MG/0.5 ML VIAL IV PRN ×2 (10:50→13:40)
[2024-07-10] MEDS: SODIUM CHLORIDE 0.9% 1,000 ML IV SCH (11:33)
--- NOTE | 2024-07-10 12:43 | P.PN ---
Subjective Progress Note Date: 07/10/24 29-year-old male patient, history of depression, hypertension, presents to the ED for evaluation of severe alcohol intoxication; patient unable to provide any history; patient has been dealing with the loss of his mother as of recent as she and has been drinking every day Blood work completed in ED reveals a WBC of 10.2, hemoglobin of 19.6 and platelet count of 224, sodium 142, potassium 3.9, BUNs/creatinine of 7/0.62 and blood glucose of 157, serum alcohol level of 510, AST/ALT elevated at 343/137 Patient has been placed on IV fluids along with thiamine and folic acid and is being admitted for alcohol intoxication/pending withdrawal Objective - Vital Signs Vital signs: Vital Signs Temp 98 F 07/09/24 18:33 Pulse 92 07/09/24 18:33 Resp 18 07/09/24 18:33 BP 167/128 07/09/24 18:33 Pulse Ox 92 L 07/09/24 18:33 FiO2 Intake & Output 07/09/24 07/09/24 07/10/24 06:59 18:59 06:59 Weight 90.718 kg - Exam General appearance: appears intoxicated, lethargic Head exam: Present: atraumatic, normocephalic, normal inspection Eye exam: Present: normal appearance, PERRL, EOMI. Absent: scleral icterus, conjunctival injection, periorbital swelling ENT exam: Present: normal exam, mucous membranes moist Neck exam: Present: normal inspection. Absent: tenderness, meningismus, lymphadenopathy Respiratory exam: Present: normal lung sounds bilaterally. Absent: respiratory distress, wheezes, rales, rhonchi, stridor Cardiovascular Exam: Present: regular rate, normal rhythm, normal heart sounds. Absent: systolic murmur, diastolic murmur, rubs, gallop, clicks GI/Abdominal exam: Present: soft, normal bowel sounds. Absent: distended, tenderness, guarding, rebound, rigid Extremities exam: Present: normal inspection, full ROM, normal capillary refill. Absent: tenderness, pedal edema, joint swelling, calf tenderness Back exam: Present: normal inspection Neurological exam: Present: alert, oriented X3, CN II-XII intact Psychiatric exam: Present: normal affect, normal mood Skin exam: Present: warm, dry, intact, normal color. Absent: rash - Labs CBC & Chem 7: 07/10/24 06:01 07/10/24 06:01 Labs: Abnormal Lab Results - Last 24 Hours (Table) 07/09/24 07/09/24 Range/Units 18:55 18:55 Hgb 19.6 H* (13.0-17.5) gm/dL Hct 58.4 H* (39.0-53.0) % BUN 7 L (9-20) mg/dL Creatinine 0.62 L (0.66-1.25) mg/dL Glucose 157 H (74-99) mg/dL AST 343 H (17-59) U/L ALT 137 H (4-49) U/L Alkaline Phosphatase 217 H (38-126) U/L Serum Alcohol 510 H* mg/dL Assessment and Plan Assessment: 1. Alcohol abuse/intoxication; pending withdrawal; blood alcohol level is 510 -According to patient's chart he has been drinking heavily since his mother passed -Patient has been placed on IV normal saline; thiamine 100 mg daily; folic acid 1 mg daily -[facility] protocol with Ativan 2. Erythrocytosis/dehydration; continue with IV fluids; hemoglobin is elevated at 19.6; likely related to dehydration -We will monitor CBC 3. Transaminitis; AST/ALT markedly elevated; related to alcohol abuse -Will educate patient; monitor liver enzymes DVT prophylaxis; SCDs CODE STATUS; full code
[2024-07-10] MEDS: LORazepam 1 MG TAB PO PRN (16:20)
[2024-07-10] MEDS: lisinopriL 5 MG TAB PO SCH (17:44)
[2024-07-11] MEDS: LORazepam 1 MG TAB PO PRN (08:29)
[2024-07-11] MEDS: chlordiazePOXIDE 25 MG CAP PO SCH (10:40)
[2024-07-11 11:39] LABS: Basophils % (A) 0 %; Eosinophils # (A) 0.1 k/uL (0-0.7); Eosinophils % (A) 1 %; Lymphocytes # (A) 0.8 k/uL (1.0-4.8); Lymphocytes % (A) 11 %; MCH 33.5 pg (25.0-35.0); MCHC 33.3 g/dL (31.0-37.0); MCV 100.6 fL (80.0-100.0); Mean Platelet Volume 9.1; Monocytes # (A) 0.5 k/uL (0-1.0); Monocytes % (A) 7 %; Neutrophils # (A) 5.4 k/uL (1.3-7.7); Neutrophils % (A) 79 %; Platelet Count 119 k/uL (150-450); RBC 5.36 m/uL (4.30-5.90); RDW 12.4 % (11.5-15.5); WBC 6.9 k/uL (3.8-10.6)
[2024-07-11 11:49] LABS: ALT 83 U/L (4-49); AST 144 U/L (17-59); African American GFR (CKD) >90 (>60 ml/min/1.73 sqM); Albumin 3.7 g/dL (3.5-5.0); Albumin/Globulin Ratio 1.3; Alkaline Phosphatase 170 U/L (38-126); Anion Gap 7 mmol/L; Blood Urea Nitrogen 7 mg/dL (9-20); Calcium 8.4 mg/dL (8.4-10.2); Carbon Dioxide 28 mmol/L (22-30); Chloride 99 mmol/L (98-107); Globulin 2.9 g/dL; Glucose 103 mg/dL (74-99); Magnesium 1.2 mg/dL (1.6-2.3); Non-African American GFR(CKD) >90 (>60 ml/min/1.73 sqM); Potassium 3.5 mmol/L (3.5-5.1); Sodium 134 mmol/L (137-145); Total Bilirubin 2.3 mg/dL (0.2-1.3); Total Protein 6.6 g/dL (6.3-8.2)
[2024-07-11] MEDS ORDERED: Magnesium Replacement Protocol 1 EACH MISC MISCELLANE PRN (12:53)
[2024-07-11] MEDS: MAGNESIUM SULFATE-D5W PMX 1 GM in DEXTROSE/WATER 1 100ML.BAG IVPB SCH (13:56)
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
[2024-07-11] MEDS: SERTRALINE 50 MG TAB PO SCH (15:05)
[2024-07-11] MEDS: MELATONIN 3 MG TABLET PO SCH (20:53)
[2024-07-11] MEDS: lisinopriL 5 MG TAB PO STA (20:53)
[2024-07-12] MEDS: LORazepam 0.5 MG TAB PO PRN (00:11)
--- NOTE | 2024-07-12 06:54 | P.PN ---
Subjective Progress Note Date: 07/11/24 29-year-old male patient, history of depression, hypertension, presents to the ED for evaluation of severe alcohol intoxication; patient unable to provide any history; patient has been dealing with the loss of his mother as of recent as she and has been drinking every day Blood work completed in ED reveals a WBC of 10.2, hemoglobin of 19.6 and platelet count of 224, sodium 142, potassium 3.9, BUNs/creatinine of 7/0.62 and blood glucose of 157, serum alcohol level of 510, AST/ALT elevated at 343/137 Patient has been placed on IV fluids along with thiamine and folic acid and is being admitted for alcohol intoxication/pending withdrawal 07/11/2024 Patient is seen and evaluated in follow-up today continues on ciwa protocol with continued withdrawal symptom. Awaiting to be evaluated by psychiatry. Patient is afebrile with no reports of chest pain or shortness of breath. Patient t olerating some diet eating very little and will continue gentle hydration and follow-up on repeat labs. Replace electrolytes per protocol and magnesium found to be 1.3 this morning. Will follow-up on repeat labs. Encouraged increase activity as tolerated and strongly recommend inpatient alcohol rehab. Librium taper is being started as well. Review of systems: Constitutional: No reports of fatigue, fever, or chills Cardiovascular: No reports of chest pain or palpitations Respiratory: No reports of shortness of breath or cough GI: reports of occasional nausea, no reports of vomiting, loose stool : No reports of dysuria or retention Neurovascular: reports of generalized weakness All medications have been reviewed PHYSICAL EXAMINATION: GENERAL: The patient is alert and oriented x4, Well developed, well nourished. Appears older than stated age HEENT: Pupils are round and equally reacting to light. EOMI. no scleral icterus. No conjunctival pallor. Normocephalic, atraumatic. No pharyngeal erythema. No thyromegaly. CARDIOVASCULAR: S1 and S2 muffled PULMONARY: diminished breath sounds bilaterally with no wheezing or rhonchi noted. ABDOMEN: soft. Nontender on exam. obese. non-distended, normoactive bowel sounds. No palpable organomegaly. MUSCULOSKELETAL: No joint swelling or deformity. EXTREMITIES: No cyanosis, clubbing, or pedal edema. NEUROLOGICAL: Gross neurological examination did not reveal any focal deficits. Diffuse weakness, upper extremity tremors noted on exam SKIN: No rashes. Assessment: -Alcohol abuse/intoxication; with concerns of acute alcohol withdrawal; blood alcohol level is 510 on admission -Erythrocytosis/dehydration; continue with IV fluids; hemoglobin is elevated at 19.6; likely related to dehydration -Transaminitis; AST/ALT markedly elevated; related to alcohol abuse -Hypomagnesemia -History of depression with recent loss of mother -GI prophylaxis -DVT prophylaxis -full code Plan: Recommend to continue with current medications and management and will continue CIWA protocol. Librium taper started Recommend social work, resources for inpatient alcohol rehab patient evaluated by psychiatry making adjustments to medications recommends outpatient follow-up with [facility] Replace electrolytes per protocol as magnesium was found to be 1.3 today. Repeat labs ordered Encouraged increase activity as tolerated with possible discharge planning in the next 24 to 48 hours Overall prognosis is guarded The impression and plan of care has been dictated by Riya Garcia, nurse practitioner as directed. Dr. Graham MD I have performed a history and examination and MDM of this patient, discussed the same with the dictator, and agree with the dictator's assessment and plan as written ,documented as a scribe. Based on total visit time, I have performed more than 50% of the visit. Any additional findings or plans will be noted. Objective - Vital Signs Vital signs: Vital Signs Temp 97.9 F 07/11/24 13:11 Pulse 89 07/11/24 13:11 Resp 17 07/11/24 13:11 BP 152/86 07/11/24 13:11 Pulse Ox 96 07/11/24 13:11 FiO2 Intake & Output 07/10/24 07/11/24 07/11/24 18:59 06:59 18:59 Intake Total 1080 Output Total 4 Balance 1076 Weight 90.718 kg Intake: Oral 1080 Output: Emesis 4 Other: Voiding Method Urinal Urinal # Voids 2 3 - Labs CBC & Chem 7: 07/11/24 11:04 07/11/24 11:04 Labs: Abnormal Lab Results - Last 24 Hours (Table) 07/11/24 07/11/24 Range/Units 11:04 11:04 Hgb 18.0 H (13.0-17.5) gm/dL Hct 54.0 H (39.0-53.0) % MCV 100.6 H (80.0-100.0) fL Plt Count 119 L (150-450) k/uL Lymphocytes # 0.8 L (1.0-4.8) k/uL Sodium 134 L (137-145) mmol/L BUN 7 L (9-20) mg/dL Creatinine 0.54 L (0.66-1.25) mg/dL Glucose 103 H (74-99) mg/dL Magnesium 1.2 L (1.6-2.3) mg/dL Total Bilirubin 2.3 H (0.2-1.3) mg/dL AST 144 H (17-59) U/L ALT 83 H (4-49) U/L Alkaline Phosphatase 170 H (38-126) U/L
[2024-07-12] MEDS: lisinopriL 10 MG TAB PO SCH (08:09)
[2024-07-12 08:47] LABS: BUN/Creat Ratio 14.14 Ratio (12.00-20.00); Blood Urea Nitrogen 9.9 mg/dL (9.0-27.0); Carbon Dioxide 23.2 mmol/L (21.6-31.8); Chloride 101 mmol/L (96-109); Glucose 104 mg/dL (70-110); Magnesium 2.4 mg/dL (1.5-2.4); Potassium 4.1 mmol/L (3.5-5.5); Sodium 137 mmol/L (135-145)
[2024-07-12 08:48] LABS: ALT 95 U/L (10-49); AST 194 U/L (14-35); Albumin/Globulin Ratio 1.48 Ratio (1.60-3.17); Alkaline Phosphatase 189 U/L (41-126); Calcium 8.9 mg/dL (8.7-10.3); Globulin 2.7 g/dL (1.6-3.3); Total Protein 6.7 g/dL (6.2-8.2)
[2024-07-12 10:16] LABS: Basophils # (A) 0.03 X 10*3/uL (0.00-0.10); Basophils % (A) 0.4 %; Eosinophils % (A) 1.2 %; HCT 52.7 % (39.6-50.0); Lymphocytes # (A) 1.26 X 10*3/uL (0.90-5.00); Lymphocytes % (A) 15.4 %; MCH 33.6 pg (27.0-32.0); MCHC 34.2 g/dL (32.0-37.0); MCV 98.3 FL (80.0-97.0); Mean Platelet Volume 12.3 FL (9.5-12.2); Monocytes # (A) 0.83 X 10*3/uL (0.20-1.00); Monocytes % (A) 10.2 %; NRBC Per 100 WBC 0 X 10*3/uL (0.00-0.01); Neutrophils % (A) 72.2 %; Platelet Count 132 X 10*3/uL (140-440); RBC 5.36 X 10*6/uL (4.40-5.60); WBC 8.17 X 10*3/uL (4.50-10.00)
[2024-07-12 12:53] VITALS: BP 145/106; PULSE 98; RESP 18; TEMP 98.6
--- NOTE | 2024-07-14 10:15 | P.DS ---
Providers Date of admission: 07/09/24 20:21 Expected date of discharge: 07/12/24 Attending physician: Eusebio Stevenson Consults: 07/09/24 20:15 Consult Physician Routine Consulting Provider: Psychiatry - [facility] Psychiatry Consult Reason/Comments: depression Do you want consulting provider notified?: Yes Primary care physician: Harvey Murphy Hospital Course: Final diagnosis -Alcohol abuse/intoxication; with concerns of acute alcohol withdrawal; blood alcohol level is 510 on admission -Erythrocytosis/dehydration; continue with IV fluids; hemoglobin is elevated at 19.6; likely related to dehydration -Transaminitis; AST/ALT markedly elevated; related to alcohol abuse, trending down -Hypomagnesemia, replaced and improved -History of depression with recent loss of mother -GI prophylaxis -DVT prophylaxis -full code Discharge disposition Patient is being discharged in a stable condition with guarded prognosis to home. Patient will follow-up with Dr. Murphy in the outpatient setting upon discharge. Patient is to continue with Librium taper and outpatient follow-up with AA and possible inpatient rehab as scheduled. Total time taken is greater than 35 minutes. Hospital course This is a 29-year-old male who was recently admitted with alcohol intoxication with concerns of acute alcohol withdrawal being closely monitored. Patient maintained on CIWA protocol also evaluated by psychiatry for depression with recent loss of mother has been excessively drinking lately. Discussed with patient about attending inpatient alcohol rehab and he is working on arranging this. Patient shows improvements and will continue Librium taper on discharge. Patient also instructed to follow-up with primary care provider this week as well as [facility] for counseling outpatient. Please refer to other consultation notes for further HPI. Currently no reports of chest pain, shortness of breath, or palpitations. Patient is afebrile. No reports of nausea or vomiting and patient is tolerating diet. Patient will discharged home today. Guarded prognosis given continued ongoing alcohol abuse. Physical exam: Gen: This is a 29-year-old male who is awake, alert and oriented x 3, well-d eveloped, well-nourished HEENT: Head is atraumatic, normocephalic. Pupils equal, round. Sclerae is anicteric. NECK: Supple. No JVD. No lymphadenopathy. No thyromegaly. LUNGS: Clear to auscultation. No wheezes or rhonchi. No intercostal retractions. HEART: Regular rate and rhythm. No murmur. ABDOMEN: Soft. Bowel sounds are present. No masses. No tenderness. EXTREMITIES: No pedal edema. No calf tenderness. NEUROLOGICAL: Patient is awake, alert and oriented x3. Cranial nerves 2 through 12 are grossly intact. Gait is steady on exam Please refer to medication reconciliation sheet for a list of medications. The impression and plan of care has been dictated by Riya Garcia, Nurse Practitioner as directed. Dr. Graham MD I have performed a history and examination and MDM of this patient, discussed the same with the dictator, and agree with the dictator's assessment and plan as written ,documented as a scribe. Based on total visit time, I have performed more than 50% of the visit. Patient Condition at Discharge: Fair Plan - Discharge Summary New Discharge Prescriptions: New Multivitamins, Thera [Multivitamin (formulary)] 1 each PO DAILY #30 tab Thiamine [Vitamin B-1] 100 mg PO DAILY #30 tab Sertraline [Zoloft] 50 mg PO DAILY #30 tab Folic Acid 1 mg PO DAILY #30 tab chlordiazePOXIDE HCl [Librium] 25 mg PO TID #6 cap Continue lisinopriL [Zestril] 5 mg PO DAILY Disulfiram [Antabuse] 250 mg PO DAILY Discharge Medication List Disulfiram [Antabuse] 250 mg PO DAILY 07/10/24 [History] lisinopriL [Zestril] 5 mg PO DAILY 07/10/24 [History] Folic Acid 1 mg PO DAILY #30 tab 07/11/24 [Rx] Multivitamins, Thera [Multivitamin (formulary)] 1 each PO DAILY #30 tab 07/11/24 [Rx] Thiamine [Vitamin B-1] 100 mg PO DAILY #30 tab 07/11/24 [Rx] chlordiazePOXIDE HCl [Librium] 25 mg PO TID #6 cap 07/11/24 [Rx] Sertraline [Zoloft] 50 mg PO DAILY #30 tab 07/12/24 [Rx] Follow up Appointment(s)/Referral(s): Harvey Murphy [Primary Care Provider] - 1-2 days (please call the office to schedule a follow up appointment) Patient Instructions/Handouts: Chlordiazepoxide (By mouth), Thiamine (By mouth), Folic Acid (By mouth), Multivitamins, Adult Formula (By mouth), Abuse of Alcohol (DC), Alcohol Withdrawal (DC) Activity/Diet/Wound Care/Special Instructions: Activity limited until follow-up Follow-up with primary care provider Continue taking medications as prescribed Avoid alcohol use and exposure Strongly recommend inpatient alcohol rehab Discharge/Stand Alone Forms: AA Meetings [place], [facility], Outpatient Counseling, Outpatient Therapy List Discharge Disposition: HOME SELF-CARE
== END 2024-07-12 13:22 | disposition home or self-care (01) | DRG 775 ==
LOC: EC 18:29 → 5NMEDONC 20:21
PROVIDERS: ADMIT Hospitalist; ATTEND Hospitalist
DX: F10.229 Alcohol dependence with intoxication, unspecified (principal); F10.239 Alcohol dependence with withdrawal, unspecified; F17.210 Nicotine dependence, cigarettes, uncomplicated; F19.94 Other psychoactive substance use, unspecified with psychoactive substance-induced mood disorder; F32.A Depression, unspecified; Y90.8 Blood alcohol level of 240 mg/100 ml or more; I10 Essential (primary) hypertension; E86.0 Dehydration; E83.42 Hypomagnesemia; D75.1 Secondary polycythemia; Z28.310 Unvaccinated for COVID-19; Z28.21 Immunization not carried out because of patient refusal; Z71.41 Alcohol abuse counseling and surveillance of alcoholic; Z63.4 Disappearance and death of family member; Z60.2 Problems related to living alone; Z59.00 Homelessness unspecified; Z79.899 Other long term (current) drug therapy
CPT/HCPCS: 36415; 80053; 80320; 82248; 83690; 83735; 84100; 85025; 96374; 96375; 96376; 99285

== ENCOUNTER 2024-11-03 11:15 | Observation (INO) | payer OTHER ==
[2024-11-03] MEDS ORDERED: LORazepam 1 MG/0.5 ML VIAL IV PRN (11:51)
--- NOTE | 2024-11-03 11:58 | ED ---
Alcohol HPI - General Chief Complaint: Alcohol Stated Complaint: Withdrawl Time Seen by Provider: 11/03/24 11:53 Source: patient, RN notes reviewed, old records reviewed Mode of arrival: ambulatory Limitations: no limitations - History of Present Illness Initial Comments: 29 male presenting to the ER for evalaution of alcohol withdrawl. Patient reports he is seeking help and entering rehab and would like to go to [place] after detoxing. Patient reports he was at [place] approximately 1 month ago for alcohol abuse but upon leaving facility his fiance left him and he had a relapse in drinking. He admits to drinking 1/2 gallon of liquor per day for the past 2 to 3 months. He does report he has been drinking since he was a teenager. He denies any illicit drug or marijuana use. He denies a history of withdrawal seizures or DTs. Patient reports he is currently extremely thirsty, nauseous and shaky. He has not taken anything for his current symptoms. He denies any dizziness, lightheadedness, chest pain, shortness of breath, diarrhea, constipation, urinary complaints. Denies any hematemesis or coffee-ground emesis. Denies any SI or HI. - Related Data Home Medications Medication Instructions Recorded Confirmed lisinopriL [Zestril] 5 mg PO DAILY 07/10/24 11/03/24 busPIRone HCl [Buspar] 10 mg PO TID PRN 11/03/24 11/03/24 Previous Rx's Medication Instructions Recorded FLUoxetine HCL [PROzac] 40 mg PO DAILY #60 cap 09/05/24 Allergies Allergy/AdvReac Type Severity Reaction Status Date / Time No Known Allergies Allergy Verified 11/03/24 13:13 Review of Systems ROS Statement: Those systems with pertinent positive or pertinent negative responses have been documented in the HPI. ROS Other: All systems not noted in ROS Statement are negative. Past Medical History Past Medical History: No Reported History History of Any Multi-Drug Resistant Organisms: None Reported Past Surgical History: No Surgical Hx Reported Past Psychological History: Depression Smoking Status: Never smoker Past Alcohol Use History: Abuse, Daily, Heavy Past Drug Use History: None Reported General Exam Limitations: no limitations General appearance: alert, in no apparent distress Respiratory exam: Present: normal lung sounds bilaterally. Absent: respiratory distress, wheezes, rales, rhonchi, stridor Cardiovascular Exam: Present: normal rhythm, tachycardia, normal heart sounds GI/Abdominal exam: Present: soft, tenderness (Left upper quadrant), normal bowel sounds Extremities exam: Present: normal inspection, full ROM, normal capillary refill. Absent: tenderness, pedal edema, joint swelling, calf tenderness Neurological exam: Present: alert, oriented X3, CN II-XII intact Skin exam: Present: warm, dry, intact, normal color, other (Numerous scabs to bi lateral upper and lower extremities.). Absent: rash Course Vital Signs 11/03/24 11/03/24 11/03/24 11:19 12:33 16:14 Temperature 97.9 F 97.8 F 97.7 F Pulse Rate 116 H 85 66 Respiratory 20 15 18 Rate Blood Pressure 144/104 172/111 166/122 O2 Sat by Pulse 99 100 98 Oximetry Medical Decision Making - Medical Decision Making Was pt. sent in by a medical professional or institution (, PA, BLOW OFF WORKER, urgent care, hospital, or [facility]...) When possible be specific @ -No Did you speak to anyone other than the patient for history (EMS, parent, family, police, friend...)? What history was obtained from this source @ -No Did you review nursing and triage notes (agree or disagree)? Why? @ -I reviewed and agree with nursing and triage notes Were old charts reviewed (outside hosp., previous admission, EMS record, old EKG, old radiological studies, urgent care reports/EKG's, [facility] records)? Report findings @ -No old charts were reviewed Differential Diagnosis (chest pain, altered mental status, abdominal pain women, abdominal pain men, vaginal bleeding, weakness, fever, dyspnea, syncope, headache, dizziness, GI bleed, back pain, seizure, CVA, palpatations, mental health, musculoskeletal)? @ -Alcohol intoxication, seizure, alcohol withdrawal, overdose, suicidal ideation,... This list is not meant to be all-inclusive EKG interpreted by me (3pts min.). @ -As above X-rays interpreted by me (1pt min.). @ -None done CT interpreted by me (1pt min.). @ -None done U/S interpreted by me (1pt. min.). @ -None done What testing was considered but not performed or refused? (CT, X-rays, U/S, labs)? Why? @ -None What meds were considered but not given or refused? Why? @ -None Did you discuss the management of the patient with other professionals (jessica pollard i.e. , PA, BLOW OFF WORKER, lab, RT, psych nurse, clinical social worker, property caretaker, teacher, corporate development officer, social work case manager)? Give summary @ -Case discussed with [facility] accepts admission Was smoking cessation discussed for >3mins.? @ -No Was critical care preformed (if so, how long)? @ -No Were there social determinants of health that impacted care today? How? (Homelessness, low income, unemployed, alcoholism, drug addiction, transportation, low edu. Level, literacy, decrease access to med. care, snf, rehab)? @ -Alcoholism Was there de-escalation of care discussed even if they declined (Discuss DNR or withdrawal of care, Hospice)? DNR status @ -No What co-morbidities impacted this encounter? (DM, HTN, Smoking, COPD, CAD, Cancer, CVA, ARF, Chemo, Hep., AIDS, mental health diagnosis, sleep apnea, morbid obesity)? @ -Alcoholism, HTN Was patient admitted / discharged? Hospital course, mention meds given and route, prescriptions, significant lab abnormalities, going to OR and other pertinent info. @ -Admitted. 29-year-old male presented the ER for evaluation of alcohol withdrawal. Upon arrival patient tachycardic 116 bpm and hypertensive 144/104 vitals otherwise stable. Patient in no signs of acute distress but is anxious and mildly diaphoretic. He is actively shaking on exam. Laboratory studies obtained marked for WBC of 12.2 with left shift, likely reactive. Total bili 1.4 likely due to dehydration. Magnesium pending at time of admission. Urinalysis with 34 RBCs and rare bacteria. UA also concerning for dehydration for which patient provided with IV fluids. EKG showing sinus rhythm no acute ST segment elevations or depressions. No T wave inversions. Patient also provided with symptomatic control with IV Zofran. Patient was provided with 10 mg IV hydralazine for hypertension. Seizure precautions, CIWA and alcohol withdrawal Ativan orders placed. Patient remained stable throughout emergency department stay. Given initial CIWA 11, [facility] of alcohol withdrawal. Social work on consult. Patient agreeable for admission and admitted in stable condition. Case discussed with ED attending, Dr. Nj. Undiagnosed new problem with uncertain prognosis? @ -No Drug Therapy requiring intensive monitoring for toxicity (Heparin, Nitro, Insulin, Cardizem)? @ -No Were any procedures done? @ -No Diagnosis/symptom? @ -Alcohol withdrawal Acute, or Chronic, or Acute on Chronic? @ -Acute Uncomplicated (without systemic symptoms) or Complicated (systemic symptoms)? @ -Complicated Side effects of treatment? @ -No Exacerbation, Progression, or Severe Exacerbation? @ -No Poses a threat to life or bodily function? How? (Chest pain, USA, NH, pneumonia, PE, COPD, DKA, ARF, appy, cholecystitis, CVA, Diverticulitis, Homicidal, Suicidal, threat to staff... and all critical care pts) @ -Yes, can lead to seizures which is a threat to neurological function. - Lab Data Result diagrams: 11/03/24 12:00 11/03/24 15:06 Lab Results 11/03/24 11/03/24 11/03/24 Range/Units 12:00 12:10 12:21 WBC 12.28 H (4.50-10.00) 10*3/uL RBC 5.23 (4.40-5.60) 10*6/uL Hgb 16.4 (13.0-17.0) g/dL Hct 46.0 (39.6-50.0) % MCV 88.0 (80.0-97.0) fL MCH 31.4 (27.0-32.0) pg MCHC 35.7 (32.0-37.0) g/dL Plt Count 188 (140-440) 10*3/uL MPV 11.1 (9.5-12.2) fL Immature Gran % (Auto) 0.3 % Neutrophils % 86.3 % Lymphocytes % 4.3 % Monocytes % 8.9 % Eosinophils % 0.0 % Basophils % 0.2 % Immature Gran # 0.04 (0.00-0.04) 10*3/uL Neutrophils # 10.59 H (1.80-7.70) 10*3/uL Lymphocytes # 0.53 L (0.90-5.00) 10*3/uL Monocytes # 1.09 H (0.20-1.00) 10*3/uL Eosinophils # 0.00 L (0.04-0.35) 10*3/uL Basophils # 0.03 (0.00-0.10) 10*3/uL Sodium (137-145) mmol/L Potassium (3.5-5.1) mmol/L Chloride (98-107) mmol/L Carbon Dioxide (22-30) mmol/L Anion Gap mmol/L BUN (9-20) mg/dL Creatinine (0.66-1.25) mg/dL Est GFR (CKD-EPI)AfAm (>60 ml/min/1.73 sqM) Est GFR (CKD-EPI)NonAf (>60 ml/min/1.73 sqM) Glucose (74-99) mg/dL Plasma Lactic Acid Naresh 1.7 (0.7-2.0) mmol/L Calcium (8.4-10.2) mg/dL Total Bilirubin (0.2-1.3) mg/dL AST (17-59) U/L ALT (4-49) U/L Alkaline Phosphatase (38-126) U/L Total Protein (6.3-8.2) g/dL Albumin (3.5-5.0) g/dL Amylase (30-110) U/L Lipase (23-300) U/L Urine Color Yellow Urine Appearance Cloudy (Clear) Urine pH 8.0 (5.0-8.0) Ur Specific Benson 1.033 (1.001-1.035) Urine Protein 3+ H (Negative) Urine Glucose (UA) Trace H (Negative) Urine Ketones 1+ H (Negative) Urine Blood Trace H (Negative) Urine Nitrite Negative (Negative) Urine Bilirubin 1+ H (Negative) Urine Urobilinogen 6.0 (<2.0) mg/dL Ur Leukocyte Esterase Negative (Negative) Urine RBC 34 H (0-5) /hpf Urine WBC 4 (0-5) /hpf Ur Squamous Epith Cells <1 (0-4) /hpf Urine Bacteria Rare H (None) /hpf Hyaline Casts 4 H (0-2) /lpf Urine Mucus Many H (None) /hpf Urine Opiates Screen Not Detected (NotDetected) Ur Oxycodone Screen Not Detected (NotDetected) Urine Methadone Screen Not Detected (NotDetected) Ur Barbiturates Screen Not Detected (NotDetected) U Tricyclic Antidepress Not Detected (NotDetected) Ur Phencyclidine Scrn Not Detected (NotDetected) Ur Amphetamines Screen Not Detected (NotDetected) U Methamphetamines Scrn Not Detected (NotDetected) U Benzodiazepines Scrn Not Detected (NotDetected) Urine Cocaine Screen Not Detected (NotDetected) U Marijuana (THC) Screen Detected H (NotDetected) Serum Alcohol mg/dL 11/03/24 Range/Units 15:06 WBC (4.50-10.00) 10*3/uL RBC (4.40-5.60) 10*6/uL Hgb (13.0-17.0) g/dL Hct (39.6-50.0) % MCV (80.0-97.0) fL MCH (27.0-32.0) pg MCHC (32.0-37.0) g/dL Plt Count (140-440) 10*3/uL MPV (9.5-12.2) fL Immature Gran % (Auto) % Neutrophils % % Lymphocytes % % Monocytes % % Eosinophils % % Basophils % % Immature Gran # (0.00-0.04) 10*3/uL Neutrophils # (1.80-7.70) 10*3/uL Lymphocytes # (0.90-5.00) 10*3/uL Monocytes # (0.20-1.00) 10*3/uL Eosinophils # (0.04-0.35) 10*3/uL Basophils # (0.00-0.10) 10*3/uL Sodium 137 (137-145) mmol/L Potassium 3.5 (3.5-5.1) mmol/L Chloride 102 (98-107) mmol/L Carbon Dioxide 30 (22-30) mmol/L Anion Gap 5 mmol/L BUN 12 (9-20) mg/dL Creatinine 0.50 L (0.66-1.25) mg/dL Est GFR (CKD-EPI)AfAm >90 (>60 ml/min/1.73 sqM) Est GFR (CKD-EPI)NonAf >90 (>60 ml/min/1.73 sqM) Glucose 105 H (74-99) mg/dL Plasma Lactic Acid Naresh (0.7-2.0) mmol/L Calcium 8.9 (8.4-10.2) mg/dL Total Bilirubin 1.4 H (0.2-1.3) mg/dL AST 40 (17-59) U/L ALT 25 (4-49) U/L Alkaline Phosphatase 119 (38-126) U/L Total Protein 6.3 (6.3-8.2) g/dL Albumin 3.8 (3.5-5.0) g/dL Amylase 52 (30-110) U/L Lipase 124 (23-300) U/L Urine Color Urine Appearance (Clear) Urine pH (5.0-8.0) Ur Specific Benson (1.001-1.035) Urine Protein (Negative) Urine Glucose (UA) (Negative) Urine Ketones (Negative) Urine Blood (Negative) Urine Nitrite (Negative) Urine Bilirubin (Negative) Urine Urobilinogen (<2.0) mg/dL Ur Leukocyte Esterase (Negative) Urine RBC (0-5) /hpf Urine WBC (0-5) /hpf Ur Squamous Epith Cells (0-4) /hpf Urine Bacteria (None) /hpf Hyaline Casts (0-2) /lpf Urine Mucus (None) /hpf Urine Opiates Screen (NotDetected) Ur Oxycodone Screen (NotDetected) Urine Methadone Screen (NotDetected) Ur Barbiturates Screen (NotDetected) U Tricyclic Antidepress (NotDetected) Ur Phencyclidine Scrn (NotDetected) Ur Amphetamines Screen (NotDetected) U Methamphetamines Scrn (NotDetected) U Benzodiazepines Scrn (NotDetected) Urine Cocaine Screen (NotDetected) U Marijuana (THC) Screen (NotDetected) Serum Alcohol <10 mg/dL - EKG Data -: EKG Interpreted by Me EKG Comments: EKG taken at 11: 58 showing a sinus rhythm. No acute ST segment or T wave abnormalities. Artifact present. Ventricular rate 93, UT interval 164, QRS duration 109, QT/QTc 404/455. Disposition Clinical Impression: Alcohol withdrawal syndrome Disposition: ADMITTED IP TO THIS [facility] Condition: Stable Referrals: Harvey Murphy [Primary Care Provider] - 1-2 days Time of Disposition: 16:13
[2024-11-03] MEDS: SODIUM CHLORIDE 0.9% 1,000 ML IV ONE (12:16)
[2024-11-03] MEDS: ONDANSETRON 4 MG/2 ML VIAL IVP STA (12:18)
[2024-11-03] MEDS: SODIUM CHLORIDE 0.9% 500 ML 500 ML IV ONE (12:18)
[2024-11-03] MEDS: THIAMINE 100 MG/ML 2 ML VIAL IM STA (12:19)
[2024-11-03] MEDS: LORazepam 1 MG/0.5 ML VIAL IV PRN ×2 (12:25→16:12)
[2024-11-03 13:58] LABS: Bacteria,Urine Rare /hpf; Bilirubin,Urine 1+ (Negative); Blood,Urine Trace (Negative); Color,Urine Yellow; Glucose,Urine (UA) Trace (Negative); Hyaline Casts,Urine 4 /lpf (0-2); Ketones,Urine 1+ (Negative); Leukocyte Esterase,Urine Negative (Negative); Mucus,Urine Many /hpf; Nitrite,Urine Negative (Negative); PH, Urine 8.0 (5.0-8.0); Protein,Urine 3+ (Negative); RBC,Urine 34 /hpf (0-5); Specific Gravity,Urine 1.033 (1.001-1.035); Squamous Epithelial Cell,Urine <1 /hpf (0-4); Urobilinogen,Urine 6.0 mg/dL (<2.0); WBC,Urine 4 /hpf (0-5)
[2024-11-03 14:11] LABS: Barbiturate Screen,Urine Not Detected (NotDetected); Benzodiazepines Screen,Urine Not Detected (NotDetected); Opiate Screen,Urine Not Detected (NotDetected); Oxycodone Screen, Urine Not Detected (NotDetected); Phencyclidine Screen,Urine Not Detected (NotDetected); Tricyclic Antidepressant,Urine Not Detected (NotDetected); Urn Cannabinoid Scrn Detected (NotDetected)
[2024-11-03 14:57] LABS: Basophils # (A) 0.03 10*3/uL (0.00-0.10); Basophils % (A) 0.2 %; Eosinophils # (A) 0.00 10*3/uL (0.04-0.35); Eosinophils % (A) 0.0 %; HCT 46.0 % (39.6-50.0); HGB 16.4 g/dL (13.0-17.0); Lymphocytes # (A) 0.53 10*3/uL (0.90-5.00); Lymphocytes % (A) 4.3 %; MCH 31.4 pg (27.0-32.0); MCHC 35.7 g/dL (32.0-37.0); MCV 88.0 fL (80.0-97.0); Monocytes # (A) 1.09 10*3/uL (0.20-1.00); Monocytes % (A) 8.9 %; Neutrophils # (A) 10.59 10*3/uL (1.80-7.70); Neutrophils % (A) 86.3 %; Platelet Count 188 10*3/uL (140-440); RBC 5.23 10*6/uL (4.40-5.60); RDW 14.3 % (11.5-14.5); WBC 12.28 10*3/uL (4.50-10.00)
[2024-11-03 16:02] LABS: ALT 25 U/L (4-49); AST 40 U/L (17-59); African American GFR (CKD) >90 (>60 ml/min/1.73 sqM); Albumin 3.8 g/dL (3.5-5.0); Alkaline Phosphatase 119 U/L (38-126); Amylase 52 U/L (30-110); Anion Gap 5 mmol/L; Blood Urea Nitrogen 12 mg/dL (9-20); Calcium 8.9 mg/dL (8.4-10.2); Carbon Dioxide 30 mmol/L (22-30); Chloride 102 mmol/L (98-107); Glucose 105 mg/dL (74-99); Lipase 124 U/L (23-300); Non-African American GFR(CKD) >90 (>60 ml/min/1.73 sqM); Potassium 3.5 mmol/L (3.5-5.1); Sodium 137 mmol/L (137-145); Total Protein 6.3 g/dL (6.3-8.2)
[2024-11-03] MEDS ORDERED: NALOXONE 0.4 MG/ML 1 ML VIAL IV PRN (16:13)
[2024-11-03] MEDS ORDERED: IBUPROFEN 400 MG TAB PO PRN (16:13)
[2024-11-03] MEDS ORDERED: ONDANSETRON 4 MG/2 ML VIAL IVP PRN (16:13)
[2024-11-03] MEDS: SODIUM CHLORIDE 0.9% 1,000 ML IV SCH (16:18)
[2024-11-03] MEDS: hydrALAZINE HCL 20 MG/ML 1 ML VIAL IVP STA (16:32)
--- NOTE | 2024-11-04 00:25 | HP ---
HISTORY AND PHYSICAL CHIEF COMPLAINT: Alcohol withdrawal. HISTORY OF PRESENT ILLNESS: This 29-year-old gentleman with a past medical history of alcoholism, was admitted with withdrawal symptoms. The patient apparently wants to go to [place] for detox. Again, the patient relapsed and had been drinking recently. The patient complains of tremors. There is no history of fever, rigors or chills at this time. PAST MEDICAL HISTORY: History of EtOH, depression. Rest of the chart is also reviewed. HOME MEDICATIONS: Reviewed, include BuSpar. Dose and rest of medications reviewed. ALLERGIES: None. FAMILY HISTORY: No history of heart disease or strokes in the family. SOCIAL HISTORY: Heavy alcohol. REVIEW OF SYSTEMS: A 14-point review of systems negative except as mentioned earlier. PHYSICAL EXAMINATION: VITAL SIGNS: Pulse is 85, blood pressure 170/111, respirations 15. HEENT: Conjunctivae normal. NECK: No JVD. CARDIOVASCULAR: S1, S2. RESPIRATION: Breath sounds diminished at the bases. Scattered rhonchi. ABDOMEN: Soft. LEGS: No edema. NERVOUS SYSTEM: Diffuse tremors present. LABORATORY DATA: Reviewed. ASSESSMENT: 1. Acute alcohol withdrawal and delirium tremens. 2. Hypertension. 3. History of depression. RECOMMENDATIONS AND DISCUSSION: This 29-year-old gentleman presented with multiple complex medical issues. We will monitor the patient closely with [facility] protocol. We will closely monitor. Social Work, nurse outreach case manager to follow the patient. Prognosis guarded because of multiple complex medical issues. Further recommendations to follow. Also recommended Psych evaluation as an outpatient also. MMODL / IJN: [id number] /
[2024-11-04] MEDS: PANTOPRAZOLE 40 MG TABLET PO SCH (06:29)
[2024-11-04 07:32] VITALS: BP 147/90; PULSE 56; RESP 15; TEMP 98.4
[2024-11-04 07:55] LABS: Basophils # (A) 0.01 X 10*3/uL (0.00-0.10); Basophils % (A) 0.1 %; Eosinophils # (A) 0.06 X 10*3/uL (0.04-0.35); Eosinophils % (A) 0.9 %; HCT 43.4 % (39.6-50.0); HGB 14.2 g/dL (13.0-17.0); Immature Grans, Automated 0.30 %; Lymphocytes # (A) 1.52 X 10*3/uL (0.90-5.00); Lymphocytes % (A) 21.8 %; MCH 30.3 pg (27.0-32.0); MCHC 32.7 g/dL (32.0-37.0); MCV 92.7 FL (80.0-97.0); Monocytes # (A) 0.63 X 10*3/uL (0.20-1.00); Monocytes % (A) 9.0 %; NRBC Per 100 WBC 0 X 10*3/uL (0.00-0.01); Neutrophils # (A) 4.74 X 10*3/uL (1.80-7.70); Neutrophils % (A) 67.9 %; Platelet Count 137 X 10*3/uL (140-440); RBC 4.68 X 10*6/uL (4.40-5.60); RDW 14.9 % (11.5-14.5); WBC 6.98 X 10*3/uL (4.50-10.00)
[2024-11-04 08:16] LABS: ALT 25 U/L (10-49); AST 39 U/L (14-35); Albumin 3.5 g/dL (3.8-4.9); Albumin/Globulin Ratio 1.75 Ratio (1.60-3.17); Alkaline Phosphatase 114 U/L (41-126); Anion Gap 9.00 mmol/L (4.00-12.00); BUN/Creat Ratio 20.80 Ratio (12.00-20.00); Blood Urea Nitrogen 10.4 mg/dL (9.0-27.0); Calcium 8.5 mg/dL (8.7-10.3); Carbon Dioxide 26.0 mmol/L (21.6-31.8); Chloride 101 mmol/L (96-109); Globulin 2.0 g/dL (1.6-3.3); Glucose 132 mg/dL (70-110); Magnesium 1.3 mg/dL (1.5-2.4); Potassium 3.3 mmol/L (3.5-5.5); Sodium 136 mmol/L (135-145); Total Protein 5.5 g/dL (6.2-8.2)
== END 2024-11-04 11:30 | disposition home or self-care (01) ==
LOC: EC 11:15 → 6NMEDSUR 18:18
PROVIDERS: ADMIT Hospitalist; ATTEND Hospitalist
DX: F10.231 Alcohol dependence with withdrawal delirium (principal); I10 Essential (primary) hypertension; F32.A Depression, unspecified; Z79.899 Other long term (current) drug therapy
CPT/HCPCS: 96376 ×2; 96361 ×3; 96372; 96374; 96375; 99285; 36415; 93005; 80053 ×2; 82150; 83605; 83690; 83735 ×2; 85025 ×2; 81001; 80306; G0378 ×2; G0480; J2060 ×2; J0360; J3411; J2405; 80320